=== PATIENT | male | born 1985 | race Two or more races ===

== ENCOUNTER 2021-07-08 04:08 | Emergency (ER) | payer BC, OTHER ==
[~2021-07-08 04:08] MED LIST: Aspirin 81 MG Tab.Chew PO ONE
[2021-07-08] MEDS ORDERED: Take Home: Naproxen 500 MG Tab, 4 Tab Pack PO ONE (05:27)
[2021-07-08] MEDS ORDERED: Take Home: Cyclobenzaprine 10 MG Tab, 4 Tab Pack PO ONE (05:27)
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
== END 2021-07-08 05:51 | disposition home or self-care (01) ==
LOC: VM.ED 04:08
DX: M54.50 Low back pain, unspecified (principal)
CPT/HCPCS: 72100; 93005; 99283; A9270